=== PATIENT | male | born 1950 | race Two or more races ===

== ENCOUNTER 2022-11-07 13:45 | Emergency (ER) | payer MEDICAID ==
[2022-11-07 15:06] LABS: ESTIMATED GFR 81 mL/min (>60)
[2022-11-07] MEDS ORDERED: Sodium Chloride 0.9% 10 ML Syringe FLUSH PRN (15:32)
[2022-11-07] MEDS ORDERED: Sodium Chloride 0.9% 75 ML IV SCH (15:45)
[2022-11-07] MEDS ORDERED: Iopamidol 612 MG/ML 100 ML Bottle IV SCH (15:45)
[2022-11-07] MEDS ORDERED: Ketorolac 30 MG/ML SDV IVPUSH ONE (15:59)
== END 2022-11-07 17:37 | disposition home or self-care (01) ==
LOC: JP.ED 13:45
DX: K59.00 Constipation, unspecified (principal); D45 Polycythemia vera; E80.6 Other disorders of bilirubin metabolism; N40.0 Benign prostatic hyperplasia without lower urinary tract symptoms; E10.9 Type 1 diabetes mellitus without complications; Z79.84 Long term (current) use of oral hypoglycemic drugs; Z79.899 Other long term (current) drug therapy
CPT/HCPCS: 36415; 74177; 80053; 81001; 82248; 83605; 83690; 85025; 96374; 99284; G0103; J1885; J3490; Q9967